=== PATIENT | female | born 1955 | race Caucasian/White ===

== ENCOUNTER 2017-05-25 16:03 | Emergency (ER) | payer MEDICARE, OTHER ==
[2017-05-25] MEDS ORDERED: SODIUM CHLORIDE 0.9% 1,000 ML IV STA ×2 (16:14→18:23)
--- NOTE | 2017-05-25 16:18 | ED ---
Seizure HPI - General Chief Complaint: Seizure Stated Complaint: SEIZURE Time Seen by Provider: 05/25/17 16:05 Source: patient, EMS, RN notes reviewed Mode of arrival: EMS Limitations: no limitations - History of Present Illness Initial Comments: Is a 61-year-old female history of closed head injury seizure disorder who apparently had 2 seizures prior to admission today. They both lasted 10 minutes. Lassoed his prior to admission she was brought in by EMS per paramedics she was awake alert oriented as per usual she was noted have a blood pressure 90/62. MD Complaint: seizure - Related Data Home Medications Medication Instructions Recorded Confirmed Calcium Carb-Vit D 500Mg-200Un 1 tab PO TID 05/25/14 05/25/17 [Oscal 500+D] Escitalopram [Lexapro] 10 mg PO DAILY 05/25/14 05/25/17 carBAMazepine [TEGretol XR] 800 mg PO Q12H 05/25/14 05/25/17 OLANZapine 7.5 mg PO HS 05/05/16 05/25/17 Acetaminophen Tab [Tylenol Tab] 325 mg PO Q6H PRN 05/25/17 05/25/17 Lacosamide [Vimpat] 200 mg PO Q12H 05/25/17 05/25/17 Loperamide [Imodium] 4 mg PO TID PRN 05/25/17 05/25/17 Melatonin 3 mg PO HS@1900 05/25/17 05/25/17 Topiramate [Topamax] 200 mg PO Q12H 05/25/17 05/25/17 Allergies Allergy/AdvReac Type Severity Reaction Status Date / Time No Known Allergies Allergy Verified 05/25/17 16:13 Review of Systems ROS Statement: Those systems with pertinent positive or pertinent negative responses have been documented in the HPI. ROS Other: All systems not noted in ROS Statement are negative. Past Medical History Past Medical History: CVA/TIA, Memory Impairment, Seizure Disorder Additional Past Medical History / Comment(s): psychotic disorder with delusions , mild mental retardation, antisocial personality History of Any Multi-Drug Resistant Organisms: None Reported Past Surgical History: No Surgical Hx Reported Past Anesthesia/Blood Transfusion Reactions: No Reported Reaction Past Psychological History: Anxiety, Panic Disorder Smoking Status: Former smoker Past Alcohol Use History: None Reported Past Drug Use History: None Reported - Past Family History Mother Family Medical History: CVA/TIA General Exam - General Exam Comments Initial Comments: This is a well-developed well-nourished awake alert oriented female Limitations: no limitations General appearance: alert, in no apparent distress Head exam: Present: atraumatic, normocephalic, normal inspection Eye exam: Present: normal appearance, PERRL, EOMI. Absent: scleral icterus, conjunctival injection, periorbital swelling ENT exam: Present: normal exam, mucous membranes moist Neck exam: Present: normal inspection. Absent: tenderness, meningismus, lymphadenopathy Respiratory exam: Present: normal lung sounds bilaterally. Absent: respiratory distress, wheezes, rales, rhonchi, stridor Cardiovascular Exam: Present: regular rate, normal rhythm, normal heart sounds. Absent: systolic murmur, diastolic murmur, rubs, gallop, clicks GI/Abdominal exam: Present: soft, normal bowel sounds. Absent: distended, tenderness, guarding, rebound, rigid Extremities exam: Present: normal inspection, full ROM, normal capillary refill. Absent: tenderness, pedal edema, joint swelling, calf tenderness Back exam: Present: normal inspection Neurological exam: Present: alert, oriented X3, CN II-XII intact Psychiatric exam: Present: normal affect, normal mood Skin exam: Present: warm, dry, intact, normal color. Absent: rash Course Vital Signs 05/25/17 05/25/17 16:11 17:27 Temperature 99.5 F Pulse Rate 71 69 Respiratory 16 16 Rate Blood Pressure 90/62 96/62 O2 Sat by Pulse 97 95 Oximetry Medical Decision Making - Medical Decision Making Patient is feeling much improved she was noted be dehydrated patient will be discharged I did discuss with the patient and her caregiver. She is increase oral fluids follow-up when necessary - Lab Data Result diagrams: 05/25/17 16:05 05/25/17 16:05 Lab Results 05/25/17 05/25/17 05/25/17 Range/Units 16:05 16:05 16:05 WBC 4.8 (3.8-10.6) k/uL RBC 4.48 (3.80-5.40) m/uL Hgb 13.8 (11.4-16.0) gm/dL Hct 41.7 (34.0-46.0) % MCV 93.0 (80.0-100.0) fL MCH 30.8 (25.0-35.0) pg MCHC 33.1 (31.0-37.0) g/dL RDW 13.7 (11.5-15.5) % Plt Count 214 (150-450) k/uL Neutrophils % 54 % Lymphocytes % 35 % Monocytes % 8 % Eosinophils % 0 % Basophils % 1 % Neutrophils # 2.6 (1.3-7.7) k/uL Lymphocytes # 1.7 (1.0-4.8) k/uL Monocytes # 0.4 (0-1.0) k/uL Eosinophils # 0.0 (0-0.7) k/uL Basophils # 0.0 (0-0.2) k/uL Sodium 143 (137-145) mmol/L Potassium 4.2 (3.5-5.1) mmol/L Chloride 111 H (98-107) mmol/L Carbon Dioxide 24 (22-30) mmol/L Anion Gap 8 mmol/L BUN 23 H (7-17) mg/dL Creatinine 0.90 (0.52-1.04) mg/dL Est GFR (MDRD) Af Amer >60 (>60 ml/min/1.73 sqM) Est GFR (MDRD) Non-Af >60 (>60 ml/min/1.73 sqM) Glucose 97 (74-99) mg/dL Calcium 9.7 (8.4-10.2) mg/dL Magnesium 2.2 (1.6-2.3) mg/dL Total Bilirubin 0.3 (0.2-1.3) mg/dL AST 26 (14-36) U/L ALT 36 (9-52) U/L Alkaline Phosphatase 125 (38-126) U/L Total Protein 6.5 (6.3-8.2) g/dL Albumin 3.7 (3.5-5.0) g/dL Carbamazepine 9.8 ug/mL Disposition Clinical Impression: Breakthrough seizure, Dehydration Disposition: HOME SELF-CARE Condition: Good Instructions: Recurrent Seizures in Adults (ED), Dehydration (ED) Referrals: None,Stated [Primary Care Provider] - 1-2 days
[2017-05-25 16:27] LABS: Basophils % (A) 1 %; CH 31.7; CHCM 34.3; Eosinophils % (A) 0 %; HCT 41.7 % (34.0-46.0); HDW 2.46; HGB 13.8 gm/dL (11.4-16.0); Luc # (Auto) 0.11; Luc % (Auto) 2; Lymphocytes # (A) 1.7 k/uL (1.0-4.8); Lymphocytes % (A) 35 %; MCH 30.8 pg (25.0-35.0); MCHC 33.1 g/dL (31.0-37.0); Mean Platelet Volume 7.9; Monocytes # (A) 0.4 k/uL (0-1.0); Monocytes % (A) 8 %; Neutrophils # (A) 2.6 k/uL (1.3-7.7); Neutrophils % (A) 54 %; RBC 4.48 m/uL (3.80-5.40); RDW 13.7 % (11.5-15.5); WBC 4.8 k/uL (3.8-10.6); WBC (Perox) 5.04
[2017-05-25 16:39] LABS: ALT 36 U/L (9-52); AST 26 U/L (14-36); Alkaline Phosphatase 125 U/L (38-126); Anion Gap 8 mmol/L; Blood Urea Nitrogen 23 mg/dL (7-17); Calcium 9.7 mg/dL (8.4-10.2); Carbon Dioxide 24 mmol/L (22-30); Chloride 111 mmol/L (98-107); Glucose 97 mg/dL (74-99); Magnesium 2.2 mg/dL (1.6-2.3); Non-African American GFR(MDRD) >60 (>60 ml/min/1.73 sqM); Potassium 4.2 mmol/L (3.5-5.1); Sodium 143 mmol/L (137-145); Total Bilirubin 0.3 mg/dL (0.2-1.3); Total Protein 6.5 g/dL (6.3-8.2)
[2017-05-25 19:33] VITALS: RESP 18
[2017-05-25 19:56] VITALS: BP 96/62; PULSE 68; TEMP 98.4
== END 2017-05-25 19:56 | disposition home or self-care (01) ==
LOC: EC 16:03
DX: G40.909 Epilepsy, unspecified, not intractable, without status epilepticus (principal); E86.0 Dehydration; F41.9 Anxiety disorder, unspecified; Z87.891 Personal history of nicotine dependence; Z79.899 Other long term (current) drug therapy
CPT/HCPCS: 36415; 80053; 80156; 83735; 85025; 96360; 99284

== ENCOUNTER → 2017-07-12 | Outpatient (CLI) | payer MEDICARE, OTHER ==
--- NOTE | 2017-07-16 11:34 | MM ---
Reason for exam: screening (asymptomatic). Last mammogram was performed 7 years and 6 months ago. History: Patient is nulliparous. Benign excisional biopsy of the right breast, March 28, 1999. Physical Findings: A clinical breast exam by your physician is recommended on an annual basis and results should be correlated with mammographic findings. MG 3D Screening Mammo W/Cad Bilateral CC and MLO view(s) were taken. Prior study comparison: December 27, 2009, bilateral digital screening mammogram. November 29, 2008, bilateral digital screening mammogram. There are scattered fibroglandular densities. Finding: There are typically benign round calcifications in both breasts. There is no discrete abnormality. ASSESSMENT: Benign, BI-RAD 2 RECOMMENDATION: Routine screening mammogram of both breasts in 1 year.
== END | disposition home or self-care (01) ==
LOC: RADMAMWWP 13:08
PROVIDERS: ATTEND General Practice
DX: Z12.31 Encounter for screening mammogram for malignant neoplasm of breast (principal)
CPT/HCPCS: 77063; G0202

== ENCOUNTER → 2018-04-15 | Outpatient (CLI) | payer MEDICARE, OTHER ==
--- NOTE | 2018-04-15 16:37 | CT ---
EXAMINATION TYPE: CT brain wo con DATE OF EXAM: 04/15/2018 COMPARISON: 07/28/2016 HISTORY: Headache, nausea and history of seizure CT DLP: 1201 mGycm Automated exposure control for dose reduction was used. FINDINGS: Ventricular system is compatible with the patient's age. No midline shift. Next sentence no acute hem orrhage or mass effect. Calvarium intact. IMPRESSION: NO ACUTE INTRACRANIAL HEMORRHAGE OR MASS EFFECT. IF SYMPTOMS PERSIST CONSIDER MRI.
--- NOTE | 2018-04-15 17:20 | US ---
EXAMINATION TYPE: US carotid duplex BILAT DATE OF EXAM: 04/15/2018 COMPARISON: NONE CLINICAL HISTORY: R55 Syncope, G40.009. Seizures, poor historian EXAM MEASUREMENTS: RIGHT: Peak Systolic Velocity (PSV) cm/sec ----- Right CCA: 103.1 ----- Right ICA: 96.9 ----- Right ECA: 72.9 ICA/CCA ratio: 0.9 RIGHT: End Diastole cm/sec ----- Right CCA: 24.6 ----- Right ICA: 37.4 ----- Right ECA: 9.2 LEFT: Peak Systolic Velocity (PSV) cm/sec ----- Left CCA: 59.0 ----- Left ICA: 82.3 ----- Left ECA: 77.9 ICA/CCA ratio: 1.4 LEFT: End Diastole cm/sec ----- Left CCA: 11.9 ----- Left ICA: 28.5 ----- Left ECA: 9.8 VERTEBRALS (direction of flow): Right Vertebral: Antegrade Left Vertebral: Antegrade Rhythm: Normal Plaque seen in posterior right bulb. No elevated velocities or significant stenosis. Bilateral wall thickening. Grayscale, color Doppler, spectral Doppler imaging performed of the carotid arteries. Waveform analys is does not show significant stenosis of the proximal internal carotid arteries bilaterally. IMPRESSION: No hemodynamic significant stenosis of the proximal internal carotid arteries bilaterall y by Doppler criteria, an indirect measurement of carotid stenosis
== END | disposition home or self-care (01) ==
LOC: RADCTMAIN 15:31
PROVIDERS: ATTEND Psychiatry & Neurology Neurology
DX: R55 Syncope and collapse (principal); G40.009 Localization-related (focal) (partial) idiopathic epilepsy and epileptic syndromes with seizures of localized onset, not intractable, without status epilepticus
CPT/HCPCS: 70450; 93880

== ENCOUNTER → 2022-04-12 | Outpatient (CLI) | payer MEDICARE, OTHER ==
--- NOTE | 2022-04-13 14:33 | MM ---
Reason for Exam: Screening (asymptomatic). Last mammogram was performed 4 year(s) and 9 month(s) ago. Patient History: Menarche at age 13. Patient has no children. Postmenopausal. 03/28/1999, Benign Excisional Biopsy on the right side. Risk Values: Tena 5 year model risk: 2.2%. NCI Lifetime model risk: 8.2%. Prior Study Comparison: 11/29/2008 Bilateral Screening Mammogram, [facility]. 12/27/2009 Bilateral Screening Mammogram, [facility]. 07/12/2017 Bilateral Screening Mammogram, [facility]. Tissue Density: There are scattered fibroglandular densities. Findings: Analyzed By CAD. Multiple benign-appearing calcifications are scattered bilaterally anterior to mid breasts. There is a new small nodularity within the medial right breast measuring 0.3 cm 10 cm nipple. This is an interval finding. Follow-up is recommended. Compression in craniocaudal and mediolateral view is recommended. Ultrasound is recommended of the medial 2-5 o'clock right breast. Overall Assessment: Incomplete: need additional imaging evaluation, BI-RAD 0 Management: Special View Mammogram of the right breast. A negative mammogram report should not preclude additional follow up of suspicious palpable abnormalities. Patient should continue monthly self breast exam. A clinical breast exam by your physician is recommended on an annual basis and results should be correlated with mammographic findings. Electronically signed and approved by: Justin Culp D.O. Radiologis
== END | disposition home or self-care (01) ==
LOC: RADMAMWWP 12:51
PROVIDERS: ATTEND Family Medicine
DX: Z12.31 Encounter for screening mammogram for malignant neoplasm of breast (principal); Z78.0 Asymptomatic menopausal state
CPT/HCPCS: 77067

== ENCOUNTER → 2022-04-23 | Outpatient (CLI) | payer MEDICARE, OTHER ==
--- NOTE | 2022-04-23 15:17 | MM ---
Reason for Exam: Additional evaluation requested from abnormal screening. Last screening mammogram was performed less than 1 month ago. Patient History: Menarche at age 13. Patient has no children. Postmenopausal. 03/28/1999, Benign Excisional Biopsy on the right side. Risk Values: Tena 5 year model risk: 2.2%. NCI Lifetime model risk: 8.2%. Prior Study Comparison: 12/27/2009 Bilateral Screening Mammogram, [facility]. 07/12/2017 Bilateral Screening Mammogram, [facility]. 04/12/2022 Bilateral MG screening mammo w CAD, [facility]. Tissue Density: Right: There are scattered fibroglandular densities. Findings: Analyzed By CAD. A 3 to 4 mm round well-circumscribed lesion posterior to the medial aspect right breast persists on additional spot views, not clearly seen on true lateral view. Due to small size and rounded contour it is almost certainly benign. Overall Assessment: Probably benign, BI-RAD 3 Management: Diagnostic Mammogram of the right breast in 6 months. Short-term follow-up. Ultrasound deferred due to patient's underlying medical condition and small under 5 mm size. Results were given to the patient verbally at the time of exam. Electronically signed and approved by: Jun Crocker M.D.
== END | disposition home or self-care (01) ==
LOC: RADMAMWWP 14:51
PROVIDERS: ATTEND Family Medicine
DX: R92.8 Other abnormal and inconclusive findings on diagnostic imaging of breast (principal); Z78.0 Asymptomatic menopausal state
CPT/HCPCS: 77065

== ENCOUNTER → 2022-12-27 | Outpatient (CLI) | payer MEDICARE, OTHER ==
--- NOTE | 2022-12-27 10:18 | MM ---
Reason for Exam: Follow-up at short interval from prior study. Last screening mammogram was performed 9 month(s) ago. Patient History: Menarche at age 13. Patient has no children. Postmenopausal. 03/28/1999, Benign Excisional Biopsy on the right side. Risk Values: Tena 5 year model risk: 2.2%. NCI Lifetime model risk: 7.9%. Prior Study Comparison: 07/12/2017 Bilateral Screening Mammogram, [facility]. 04/12/2022 Bilateral MG screening mammo w CAD, [facility]. 04/23/2022 Right MG work up mamm w CAD RT, [facility]. Tissue Density: Right: The breast tissue is almost entirely fat. Findings: Analyzed By CAD. Benign-appearing calcifications. No suspicious masses, calcifications or distortions. Overall Assessment: Benign, BI-RAD 2 Management: Screening Mammogram of both breasts. A clinical breast exam by your physician is recommended on an annual basis and results should be correlated with mammographic findings. This exam should not preclude additional follow-up of suspicious palpable abnormalities. Results were given to the patient verbally at the time of exam. Electronically signed and approved by: Chandler Murphy DO
== END | disposition home or self-care (01) ==
LOC: RADMAMWWP 12-25 08:59
PROVIDERS: ATTEND Family Medicine
DX: R92.8 Other abnormal and inconclusive findings on diagnostic imaging of breast (principal); Z78.0 Asymptomatic menopausal state; Z98.890 Other specified postprocedural states
CPT/HCPCS: 77065; G0279; 77061

== ENCOUNTER → 2023-04-22 | Outpatient (CLI) | payer MEDICARE, OTHER ==
--- NOTE | 2023-04-22 10:21 | MM ---
Reason for Exam: Screening (asymptomatic). Last mammogram was performed 1 year(s) and 1 month(s) ago. Patient History: Menarche at age 13. Patient has no children. Postmenopausal. 03/28/1999, Benign Excisional Biopsy on the right side. Risk Values: Tena 5 year model risk: 2.2%. NCI Lifetime model risk: 7.9%. Prior Study Comparison: 04/12/2022 Bilateral MG screening mammo w CAD, [facility]. 04/23/2022 Right MG work up mamm w CAD RT, [facility]. 12/27/2022 Right MG 3D diag mammo w/cad RT, [facility]. Tissue Density: The breast tissue is almost entirely fat. Findings: Analyzed By CAD. There is no suspicious group of microcalcifications or new suspicious mass in either breast. Overall Assessment: Negative, BI-RAD 1 Management: Screening Mammogram of both breasts in [address] [facility] will attempt to contact patient to return for supplemental views and ultrasound if indicated. Patient should continue monthly self-breast exams. A clinical breast exam by your physician is recommended on an annual basis. This exam should not preclude additional follow-up of suspicious palpable abnormalities. Note on Tena scores and lifetime risk: 1. A Tena score greater than 3% is considered moderate risk. If this is the case, consider specialist referral to assess eligibility for a risk reducing agent. 2. If overall lifetime risk for the development of breast cancer is 20% or higher, the patient may qualify for future screening with alternating mammogram and breast MRI. Electronically signed and approved by: Chandler Murphy DO
== END | disposition home or self-care (01) ==
LOC: RADMAMWWP 09:35
PROVIDERS: ATTEND General Practice
DX: Z12.31 Encounter for screening mammogram for malignant neoplasm of breast (principal); Z78.0 Asymptomatic menopausal state
CPT/HCPCS: 77067

== ENCOUNTER → 2024-04-23 | Outpatient (CLI) | payer MEDICARE, OTHER ==
--- NOTE | 2024-04-26 16:30 | BD ---
EXAMINATION TYPE: Axial Bone Density DATE OF EXAM: 04/23/2024 CLINICAL HISTORY: 68 years old Female. ICD-10 CODE: Z13.820 SCREENING FOR OSTEOPOROSIS Height: about 5'9" Weight: about 144lb FRAX RISK QUESTIONS: History of Fracture in Adulthood: yes Secondary Osteoporosis: RISK FACTORS HISTORY OF: MEDICATIONS: EXAM MEASUREMENTS: Bone mineral densitometry was performed using the [employer] System. Bone mineral density as measured about the Lumbar spine is: ----- L1-L4(G/cm2): 1.039 T Score Values are as follows: ----- L1: -0.2 ----- L2: -1.6 ----- L3: -1.2 ----- L4: -1.8 ----- L1-L4: -1.2 Z Score Values are as follows: ----- L1: 1.4 ----- L2: 0.1 ----- L3: 0.4 ----- L4: -0.2 ----- L1-L4: 0.4 First dexa at [facility] Bone mineral density about the R hip (g/cm2): 0.546 Bone mineral density about the L hip (g/cm2): 0.555 T Score values are as follows: -----R Neck: -3.1 -----L Neck: -3.3 -----R Total: -3.7 -----L Total: -3.6 Z Score values are as follows: -----R Neck: -1.5 -----L Neck: -1.7 -----R Total: -2.3 -----L Total: -2.3 First dexa at [facility] FRAX%s: The graph provided illustrates a 29.4% chance for a major osteoporotic fx and a 11.3% chance for the hips probability for fx in 10 years time. IMPRESSION: Osteoporosis (T Score less than -2.5). There is increased fracture risk and therapy is usually indicated based on age. Re-Screen 1-2 years. NOTE: T-SCORE=SD OF THE YOUNG ADULT MEAN.
--- NOTE | 2024-04-30 21:53 | MM ---
Reason for Exam: Screening (asymptomatic). Last screening mammogram was performed 12 month(s) ago. Patient History: Menarche at age 13. Patient has no children. Postmenopausal. 03/28/1999, Benign Excisional Biopsy on the right side. Risk Values: Tena 5 year model risk: 2.2%. NCI Lifetime model risk: 7.6%. Prior Study Comparison: 04/23/2022 Right MG work up mamm w CAD RT, [facility]. 12/27/2022 Right MG 3D diag mammo w/cad RT, [facility]. 04/22/2023 Bilateral MG screening mammo w CAD, [facility]. Tissue Density: There are scattered areas of fibroglandular density. Findings: Analyzed By CAD. Benign bilateral secretory calcifications redemonstrated. There is no suspicious group of microcalcifications or new suspicious mass in either breast. Overall Assessment: Benign, BI-RAD 2 Management: Screening Mammogram of both breasts in 1 year. . Patient should continue monthly self-breast exams. A clinical breast exam by your physician is recommended on an annual basis. This exam should not preclude additional follow-up of suspicious palpable abnormalities. Note on Tena scores and lifetime risk: 1. A Tena score greater than 3% is considered moderate risk. If this is the case, consider specialist referral to assess eligibility for a risk reducing agent. 2. If overall lifetime risk for the development of breast cancer is 20% or higher, the patient may qualify for future screening with alternating mammogram and breast MRI. Electronically signed and approved by: Ara Barnard M.D. Radiologist
== END | disposition home or self-care (01) ==
LOC: RADMAMWWP 10:00
PROVIDERS: ATTEND Family Medicine
DX: Z12.31 Encounter for screening mammogram for malignant neoplasm of breast (principal); N95.1 Menopausal and female climacteric states; M85.89 Other specified disorders of bone density and structure, multiple sites; Z13.820 Encounter for screening for osteoporosis; Z78.0 Asymptomatic menopausal state; R92.323 Mammographic fibroglandular density, bilateral breasts
CPT/HCPCS: 77063; 77067; 77080

== ENCOUNTER → 2024-05-07 | Outpatient (CLI) | payer MEDICARE, OTHER ==
[2024-05-07 11:21] LABS: INR 2.3 (<1.2); Partial Thromboplastin Time 56.6 sec (22.0-30.0); Prothrombin Time 22.8 sec (10.0-12.5)
== END | disposition home or self-care (01) ==
LOC: LABWHC1 10:25
PROVIDERS: ATTEND Family Medicine
DX: I82.412 Acute embolism and thrombosis of left femoral vein (principal)
CPT/HCPCS: 36415; 85610; 85730

== ENCOUNTER → 2024-05-12 | Outpatient (CLI) | payer MEDICARE, OTHER ==
[2024-05-12 12:16] LABS: Partial Thromboplastin Time 50.7 sec (22.0-30.0)
[2024-05-12 15:58] LABS: Basophils # (A) 0.04 X 10*3/uL (0.00-0.10); Basophils % (A) 0.7 %; Eosinophils # (A) 0 X 10*3/uL (0.04-0.35); Eosinophils % (A) 0 %; HCT 42.6 % (37.2-46.3); HGB 13.3 g/dL (12.0-15.0); Lymphocytes # (A) 2.28 X 10*3/uL (0.90-5.00); Lymphocytes % (A) 37.3 %; MCHC 31.2 g/dL (32.0-37.0); MCV 95.9 FL (80.0-97.0); Monocytes # (A) 0.62 X 10*3/uL (0.20-1.00); Monocytes % (A) 10.1 %; NRBC Per 100 WBC 0 X 10*3/uL (0.00-0.01); Neutrophils # (A) 3.17 X 10*3/uL (1.80-7.70); Neutrophils % (A) 51.7 %; Platelet Count 289 X 10*3/uL (140-440); RBC 4.44 X 10*6/uL (4.10-5.20); RDW 13.2 % (11.5-14.5); WBC 6.12 X 10*3/uL (4.50-10.00)
[2024-05-12 16:29] LABS: Erythrocyte Sedimentation Rate 23 mm/Hr (0-30)
[2024-05-12 16:43] LABS: C Reactive Protein, High Sens 10.3 mg/L (0.000-3.000)
== END | disposition home or self-care (01) ==
LOC: LABWHC1 10:58
PROVIDERS: ATTEND Family Medicine
DX: I82.412 Acute embolism and thrombosis of left femoral vein (principal)
CPT/HCPCS: 36415; 83880; 85025; 85300; 85301; 85379; 85610; 85652; 85730; 86141

== ENCOUNTER → 2024-08-14 | Outpatient (CLI) | payer MEDICARE, OTHER ==
--- NOTE | 2024-08-14 15:31 | XR ---
EXAMINATION TYPE: XR chest 2V DATE OF EXAM: 08/14/2024 2:33 PM COMPARISON: Chest radiographs from 06/03/2016 CLINICAL INDICATION: Female, 69 years old with history of Z79.01 [employer] (CURRENT) USE OF ANTICOAGU LANTS,R89.9,I25.1; [facility] TECHNIQUE: XR chest 2V Frontal and lateral views of the chest. FINDINGS: Lungs/Pleura: Airspace opacities in left lung base. Elevated left diaphragm. There is no evidence of pleural effusion, right focal consolidation, or pneumothorax. Pulmonary vascularity: Unremarkable. Heart/mediastinum: Cardiomediastinal silhouette is unremarkable. Musculoskeletal: No acute osseous pathology. Other findings: None Lines/Tubes: IMPRESSION: Left basilar airspace opacities possibly relate to atelectasis given the elevated left diaphragm. Cor relate for pneumonia. [facility], , 08/14/2024 3:29 PM
--- NOTE | 2024-08-14 17:08 | CA ---
Transthoracic Echo Report Name: Hannah Warren Age: 69 Gender: F : 1955 Exam Date: 08/14/2024 13:50 Exam Location: [place] [facility] Ht (in): 68 Wt (lb): 149 Ordering Physician: Saundra Cummins MD Attending/Referring Phys: Cintia Santamaria [facility] Gis Administrator Sylvia Hanson RDCS Procedure CPT: Indications: Z79.01 [facility] (CURRENT) USE OF ANTICOAGULANTS,R89.9,I25.1 Cardiac Hx: Technical Quality: Fair Contrast 1: Total Dose (mL): Contrast 2: Total Dose (mL): MEASUREMENTS (Male / Female) Normal Values 2D ECHO LV Diastolic Diameter PLAX 4.3 cm 4.2 - 5.9 / 3.9 - 5.3 cm LV Systolic Diameter PLAX 4.2 cm IVS Diastolic Thickness 0.9 cm 0.6 - 1.0 / 0.6 - 0.9 cm LVPW Diastolic Thickness 0.9 cm 0.6 - 1.0 / 0.6 - 0.9 cm LV Relative Wall Thickness 0.4 RV Internal Dim ED PLAX 3.1 cm LA Systolic Diameter LX 2.9 cm 3.0 - 4.0 / 2.7 - 3.8 cm LV Diastolic Volume MOD BP 80.4 cm??? 67 - 155 / 56 - 104 cm??? LV Systolic Volume MOD BP 41.3 cm??? 22 - 58 / 19 - 49 cm??? LV Ejection Fraction MOD BP 48.6 % >= 55 % LV Cardiac Index MOD BP 1408.6 cm???/min???m??? LV Diastolic Volume MOD 4C 60.6 cm??? LV Systolic Volume MOD 4C 35.5 cm??? LV Ejection Fraction MOD 4C 41.5 % LV Cardiac Index MOD 4C 906.5 cm???/min???m??? LV Diastolic Length 4C 6.3 cm LV Systolic Length 4C 5.4 cm LV Diastolic Volume MOD 2C 89.6 cm??? LV Systolic Volume MOD 2C 40.5 cm??? LV Ejection Fraction MOD 2C 54.8 % LV Cardiac Index MOD 2C 1771.1 cm???/min???m??? LV Diastolic Length 2C 7.6 cm LV Systolic Length 2C 6.6 cm M-MODE Aortic Root Diameter MM 3.3 cm AV Cusp Separation MM 2.1 cm DOPPLER AV Peak Velocity 138.7 cm/s AV Peak Gradient 7.7 mmHg Mitral E Point Velocity 83.7 cm/s Mitral A Point Velocity 69.1 cm/s Mitral E to A Ratio 1.2 MV Deceleration Time 201.2 ms MV E' Velocity 10.4 cm/s Mitral E to MV E' Ratio 8.0 TR Peak Velocity 251.3 cm/s TR Peak Gradient 25.3 mmHg Right Ventricular Systolic Press 35.3 mmHg FINDINGS Left Ventricle Left ventricular ejection fraction is estimated at 45-50 %. Left ventricular cavity size normal. Left ventricular wall thickness normal. Mildly reduced global left ventricular systolic function. Right Ventricle Normal right ventricular size and function. Mild pulmonary hypertension. Right Atrium Normal right atrial size. No right atrial thrombus or mass seen. Left Atrium Normal left atrial size. No left atrial thrombus or mass present. Mitral Valve Structurally normal mitral valve. No evidence for mitral valve prolapse. No mitral stenosis. Trace mitral regurgitation. Aortic Valve Trileaflet aortic valve. No aortic stenosis. Trace aortic regurgitation. Tricuspid Valve Structurally normal tricuspid valve. Mild tricuspid regurgitation. Pulmonic Valve Structurally normal pulmonic valve. No pulmonic regurgitation. Pericardium No pericardial or pleural effusion. Aorta Normal size aortic root and proximal ascending aorta. CONCLUSIONS Mild LV systolic dysfunction Previewed by: Dr. Mich Armendariz MD (Electronically Signed) Final Date: 14 August 2024 17:08
== END | disposition home or self-care (01) ==
LOC: RADECHMAIN 13:23
PROVIDERS: ATTEND Family Medicine
DX: Z79.01 Long term (current) use of anticoagulants (principal); R89.9 Unspecified abnormal finding in specimens from other organs, systems and tissues; I25.10 Atherosclerotic heart disease of native coronary artery without angina pectoris; I07.1 Rheumatic tricuspid insufficiency; I35.1 Nonrheumatic aortic (valve) insufficiency; I27.20 Pulmonary hypertension, unspecified; R53.83 Other fatigue
CPT/HCPCS: 71046; 93306

== ENCOUNTER 2024-10-27 11:32 | Day surgery (SDC) | payer MEDICARE, OTHER ==
[2024-10-27 12:00] VITALS: TEMP 97.7
[2024-10-27] MEDS ORDERED: LIDOCAINE 1% (10MG/ML) FOR IV START INTRADERMA PRN (12:09)
[2024-10-27] MEDS ORDERED: LACTATED RINGERS 1,000 ML IV SCH (12:09)
[2024-10-27] MEDS: LACTATED RINGERS 1,000 ML IV SCH (12:21)
[2024-10-27] MEDS: IV FLUID CONTINUATION 1,000 ML IV ONE (12:21)
[2024-10-27] MEDS ORDERED: PROPOFOL 10 MG/ML 20 ML VIAL IV ONE (13:39)
[2024-10-27] MEDS ORDERED: LIDOCAINE 1% INJ 10MG/ML (20 ML MDV) ONE (13:39)
[2024-10-27] MEDS ORDERED: GLYCOPYRROLATE 0.2 MG/ML 2 ML VIAL ONE (13:39)
[2024-10-27] MEDS: LIDOCAINE 2% INJ 20 MG/ML INTRATRACH ONE (13:52)
[2024-10-27 14:25] VITALS: BP 117/65; PULSE 79; RESP 18
--- NOTE | 2024-10-27 20:51 | PCN ---
PROCEDURE NOTE PROCEDURES: Bronchoscopy and airway examination. PREOPERATIVE DIAGNOSIS: Left lower lobe atelectasis, most likely secondary to left hemidiaphragm paralysis. POSTOPERATIVE DIAGNOSES: Left lower lobe atelectasis, most likely secondary to left hemidiaphragm paralysis, and suspect left vocal cord paralysis. ANESTHESIA USED: IV conscious sedation. PROCEDURE IN DETAIL: The patient was brought into the bronchoscopy suite, she was placed in a supine position, she was earlier prepared according to the bronchoscopy protocol. O2 was applied via Ventimask, we monitored her O2 saturation continuously. Blood pressure was intermittently monitored, cardiac rhythm was continuously monitored. After adequate IV conscious sedation, the bronchoscope was inserted through the bite block down to the area of the vocal cords. There was evidence of poor mobility of the left vocal cord, it was noted to be weak and not moving much during abduction, but it seems to be abducted. Then lidocaine was applied over the vocal cords, the bronchoscope was advanced further down to the trachea. Thorough examination was done of the trachea, warren, right upper lobe, right middle lobe, right lower lobe, left upper lobe lingula, and left lower lobe. The only significant finding was noted to have atelectasis, especially the medial aspect of the left lower lobe, there was no evidence of endobronchial tumor, there was no evidence of any purulent secretions, but the left lower lobe medial segment seems to be atelectatic, and I was able to look into the segment itself, there was no evidence of any endobronchial tumors, and no purulent secretions, hence no specimen was obtained from the left lower lobe. Procedure was well tolerated, no complications. The patient will be seen in the office for followup, may consider referring the patient to ENT to evaluate her vocal cords on outpatient basis. MMODL / IJN: [id number] /
== END 2024-10-27 14:51 | disposition home or self-care (01) ==
LOC: ORWHC2ENDO 11:32
PROVIDERS: ATTEND Internal Medicine
DX: J98.11 Atelectasis (principal); J18.1 Lobar pneumonia, unspecified organism; R05.3 Chronic cough
CPT/HCPCS: 31624; J2003 ×2; J2704; J1596

== ENCOUNTER 2025-03-03 08:58 | Emergency (ER) | payer MEDICARE, OTHER ==
[2025-03-03 09:06] VITALS: TEMP 97.3
--- NOTE | 2025-03-03 09:18 | ED ---
Psych HPI - General Chief Complaint: Psychiatric Symptoms Stated Complaint: Mental Health Eval. Time Seen by Provider: 03/03/25 09:08 Source: RN notes reviewed, old records reviewed, Caregiver Mode of arrival: ambulatory Limitations: altered mental status - History of Present Illness Initial Comments: This is a 69 female presenting with caregiver with concerns for increasing change in mental status increasing change in behavior, patient has a long history of behavioral issues, and has been having a change in behavior recently. Recent outpatient lab test reported normal plan scheduled for MRI, patient presents to the ER today for possible medication changes MD Complaint: altered mental status -: unknown Associated Psychiatric Symptoms: none History of same: No Associated Symptoms: denies other symptoms Treatments Prior to Arrival: placed on mental health hold - Related Data Home Medications Medication Instructions Recorded Confirmed Lacosamide [Vimpat] 200 mg PO BID 05/25/17 03/03/25 Alendronate Sodium 70 mg PO FR 10/26/24 03/03/25 Apixaban [Eliquis] 5 mg PO BID 10/26/24 03/03/25 Aspirin [Acadia Aspirin EC] 81 mg PO DAILY 10/26/24 03/03/25 Brivaracetam [Briviact] 100 mg PO BID 10/26/24 03/03/25 Brexpiprazole [Rexulti] 2 mg PO DAILY 03/03/25 03/03/25 Loratadine [Claritin] 10 mg PO DAILY 03/03/25 03/03/25 Multivit,Calc,Mins/Iron/Folic 1 tab PO DAILY 03/03/25 03/03/25 [Thera-M Tablet] OLANZapine [ZyPREXA] 5 mg PO DAILY 03/03/25 03/03/25 Oyster Shell 500mg 500 mg PO TID@0800,1600,2000 03/03/25 03/03/25 QUEtiapine XR [SEROquel XR] 50 mg PO HS 03/03/25 03/03/25 Sertraline [Zoloft] 50 mg PO DAILY 03/03/25 03/03/25 Sucralfate [Carafate] 1 gm PO BID 03/03/25 03/03/25 carBAMazepine [carBAMazepine ER] 400 mg PO BID 03/03/25 03/03/25 risperiDONE [RisperDAL] 1 mg PO BID 03/03/25 03/03/25 Allergies Allergy/AdvReac Type Severity Reaction Status Date / Time No Known Allergies Allergy Verified 03/03/25 10:29 Review of Systems ROS Statement: Those systems with pertinent positive or pertinent negative responses have been documented in the HPI. ROS Other: All systems not noted in ROS Statement are negative. 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 History of Any Multi-Drug Resistant Organisms: None Reported Past Surgical History: No Surgical Hx Reported Additional Past Surgical History / Comment(s): cataract bilateral, Past Anesthesia/Blood Transfusion Reactions: No Reported Reaction Additional Past Anesthesia/Blood Transfusion Reaction / Comment(s): no blood transfusion Past Psychological History: Anxiety, Panic Disorder Smoking Status: Never smoker Past Alcohol Use History: None Reported Past Drug Use History: None Reported - Past Family History Mother Family Medical History: CVA/TIA Brother(s) Family Medical History: Deep Vein Thrombosis (DVT) Additional Family Medical History / Comment(s): both brothers General Exam Limitations: language barrier, altered mental status General appearance: alert, in no apparent distress Head exam: Present: atraumatic, normocephalic, normal inspection Eye exam: Present: normal appearance, PERRL, EOMI. Absent: scleral icterus, conjunctival injection, periorbital swelling ENT exam: Present: normal exam, mucous membranes moist Neck exam: Present: normal inspection. Absent: tenderness, meningismus, lymphadenopathy Respiratory exam: Present: normal lung sounds bilaterally. Absent: respiratory distress, wheezes, rales, rhonchi, stridor Cardiovascular Exam: Present: regular rate, normal rhythm, normal heart sounds. Absent: systolic murmur, diastolic murmur, rubs, gallop, clicks GI/Abdominal exam: Present: soft, normal bowel sounds. Absent: distended, tenderness, guarding, rebound, rigid Extremities exam: Present: normal inspection, full ROM, normal capillary refill. Absent: tenderness, pedal edema, joint swelling, calf tenderness Back exam: Present: normal inspection Neurological exam: Present: alert, oriented X3, CN II-XII intact Psychiatric exam: Present: normal affect, normal mood Skin exam: Present: warm, dry, intact, normal color. Absent: rash Course Vital Signs 03/03/25 03/03/25 03/03/25 09:02 11:20 12:49 Temperature 97.3 F L Pulse Rate 104 H Respiratory 18 17 15 Rate Blood Pressure 110/58 O2 Sat by Pulse 98 Oximetry 03/03/25 13:35 Temperature Pulse Rate Respiratory 17 Rate Blood Pressure O2 Sat by Pulse Oximetry - Reevaluation(s) Reevaluation #1: 03/03/25 12:49 Medical records reviewed Reevaluation #2: 03/03/25 12:49 Medically cleared for psychiatric evaluation Reevaluation #3: Was pt. sent in by a medical professional or institution (, [facility], POST ANESTHESIA ROOM NURSE, urgent care, hospital, or senior care...) When possible be specific @ -no Did you speak to anyone other than the patient for history (EMS, parent, family, police, friend...)? What history was obtained from this source @ -no Did you review nursing and triage notes (agree or disagree)? Why? @ -agree Are old charts reviewed (outside hosp., previous admission, EMS record, old EKG, old radiological studies, urgent care reports/EKG's, senior care records)? Report findings @ -yes Differential Diagnosis (chest pain, altered mental status, abdominal pain women, abdominal pain men, vaginal bleeding, weakness, fever, dyspnea, syncope, headache, dizziness, GI bleed, back pain, seizure, CVA, palpatations, mental health, musculoskeletal)? @ -prior EKG interpreted by me (3pts min.). @ -yes X-rays interpreted by me (1pt min.). @ -yes negative for acute disease CT interpreted by me (1pt min.). @ -no U/S interpreted by me (1pt. min.). @ -no What testing was considered but not performed or refused? (CT, X-rays, U/S, labs)? Why? @ -none What meds were considered but not given or refused? Why? @ -none Did you discuss the management of the patient with other professionals (professionals i.e. [facility]le, POST ANESTHESIA ROOM NURSE, lab, RT, psych nurse, geriatric social worker, co chairman, teacher, technology officer, machine adjuster leader case trim)? Give summary @ -no Was smoking cessation discussed for >3mins.? @ -no Was critical care preformed (if so, how long)? @ -no Were there social determinants of health that impacted care today? How? (Homelessness, low income, unemployed, alcoholism, drug addiction, transportation, low edu. Level, literacy, decrease access to med. care, correction, rehab)? @ -none Was there de-escalation of care discussed even if they declined (Discuss DNR or withdrawal of care, Hospice)? DNR status @ -no What co-morbidities impacted this encounter? (DM, HTN, Smoking, COPD, CAD, Canc er, CVA, ARF, Chemo, Hep., AIDS, mental health diagnosis, sleep apnea, morbid obesity)? @ -none Was patient admitted / discharged? Hospital course, mention meds given and route, prescriptions, significant lab abnormalities, going to OR and other pertinent info. @ - Undiagnosed new problem with uncertain prognosis? @ -no Drug Therapy requiring intensive monitoring for toxicity (Heparin, Nitro, Insulin, Cardizem)? @ -no Were any procedures done? @ -no Diagnosis/symptom? @ - Acute, or Chronic, or Acute on Chronic? @ -Acute Uncomplicated (without systemic symptoms) or Complicated (systemic symptoms)? @ -Complicated Side effects of treatment? @ -no Exacerbation, Progression, or Severe Exacerbation? @ -exacerbation Poses a threat to life or bodily function? How? (Chest pain, [place], [place], pneumonia, PE, COPD, DKA, ARF, appy, cholecystitis, CVA, Diverticulitis, Homicidal, Suicidal, threat to staff... and all critical care pts) @ -yes Reevaluation #4: Differential Mental Health Depression, anxiety, bipolar, psychosis, schizophrenia, borderline personality, situational depression, adjustment disorder, behavioral disorder, brain tumor, malingering, substance abuse, encephalopathy, medication reaction, dementia, hypothyroidism, degenerative neurologic disorder, lupus.... This is not meant to be all-inclusive list Disposition Clinical Impression: Mood disorder Disposition: HOME SELF-CARE Condition: Good Instructions (If sedation given, give patient instructions): Mood Disorders (ED) Is patient prescribed a controlled substance at d/c from ED?: No Referrals: Saundra Cummins MD [Primary Care Provider] - 1-2 days
--- NOTE | 2025-03-03 13:30 | CT ---
EXAMINATION TYPE: CT brain wo con DATE OF EXAM: 03/03/2025 COMPARISON: 04/15/2018 CLINICAL INDICATION: Female, 69 years old with history of ams; PHH, AMS. CT DLP: 1141.4 mGycm Automated exposure control for dose reduction was used. Findings: The ventricles, basal cisterns and sulci over the convexities are within normal limits for the patien t's age and there is no mass effect or shift of midline structures. No abnormal density is seen throughout the brain parenchyma and there is no acute intra or extra-axia l hemorrhage. The posterior fossa including the brainstem, fourth ventricle and cerebellar pontine angles appear no rmal. Intraorbital contents appear normal and symmetric. Visualized paranasal sinuses and mastoid air cells are well aerated. The calvarium is intact. IMPRESSION: No significant abnormality seen. There is no acute bleed or mass effect. No significant interval cee ge. [facility], , 03/03/2025 1:28 PM
[2025-03-03 15:07] LABS: Appearance,Urine Clear (Clear); Bacteria,Urine Rare /hpf; Bilirubin,Urine Negative (Negative); Blood,Urine Negative (Negative); Color,Urine Yellow; Glucose,Urine (UA) Negative (Negative); Hyaline Casts,Urine 1 /lpf (0-2); Ketones,Urine Negative (Negative); Leukocyte Esterase,Urine Trace (Negative); Mucus,Urine Few /hpf; Nitrite,Urine Negative (Negative); Protein,Urine 1+ (Negative); RBC,Urine 2 /hpf (0-5); Specific Gravity,Urine 1.028 (1.001-1.035); Squamous Epithelial Cell,Urine 1 /hpf (0-4); Urobilinogen,Urine <2.0 mg/dL (<2.0); WBC,Urine 4 /hpf (0-5)
[2025-03-03 15:47] VITALS: BP 94/66; PULSE 83; RESP 19
== END 2025-03-03 15:47 | disposition home or self-care (01) ==
LOC: EC 08:58
DX: F39 Unspecified mood [affective] disorder (principal)
CPT/HCPCS: 70450; 81001; 82075; 99285

== ENCOUNTER → 2025-04-27 | Outpatient (CLI) | payer MEDICARE, OTHER ==
--- NOTE | 2025-04-27 08:26 | MM ---
Reason for Exam: Screening (asymptomatic). Last screening mammogram was performed 12 month(s) ago. Patient History: Menarche at age 13. Patient has no children. Postmenopausal. 03/28/1999, Benign Excisional Biopsy on the right side. Risk Values: Tena 5 year model risk: 2.2%. NCI Lifetime model risk: 7.2%. Prior Study Comparison: 12/27/2022 Right MG 3D diag mammo w/cad RT, [facility]. 04/22/2023 Bilateral MG screening mammo w CAD, [facility]. 04/23/2024 Bilateral MG 3D screening mammo w/cad, [facility]. Tissue Density: The breasts are heterogeneously dense, which may obscure small masses. Findings: Analyzed By CAD. There is no suspicious group of microcalcifications or new suspicious mass in either breast. Overall Assessment: Benign, BI-RAD 2 Management: Screening Mammogram of both breasts in 1 year. . Patient should continue monthly self-breast exams. A clinical breast exam by your physician is recommended on an annual basis. This exam should not preclude additional follow-up of suspicious palpable abnormalities. Note on Tena scores and lifetime risk: 1. A Tena score greater than 3% is considered moderate risk. If this is the case, consider specialist referral to assess eligibility for a risk reducing agent. 2. If overall lifetime risk for the development of breast cancer is 20% or higher, the patient may qualify for future screening with alternating mammogram and breast MRI. [facility], , 04/27/2025 8:24 AM. Electronically signed and approved by: Issac Peoples M.D. [facility]
== END | disposition home or self-care (01) ==
LOC: RADMAMWWP 08:06
PROVIDERS: ATTEND Family Medicine
DX: Z12.31 Encounter for screening mammogram for malignant neoplasm of breast (principal); R92.333 Mammographic heterogeneous density, bilateral breasts; Z78.0 Asymptomatic menopausal state
CPT/HCPCS: 77067